=== PATIENT | male | born 1950 | race American Indian/Alaskan Native ===

== ENCOUNTER 2019-07-15 17:05 | Emergency (ER) | payer MEDICARE ==
[2019-07-15] MEDS ORDERED: CALCIUM CHLORIDE IV ONE (17:15)
[2019-07-15] MEDS ORDERED: ADRENALIN ONE (17:15)
--- NOTE | 2019-07-15 18:00 | Emergency Department Report ---
ED CPR HPI - General Chief Complaint: Cardiac Arrest/CPR Stated Complaint: CARDIAC ARREST Time Seen by Provider: 07/15/19 17:43 Source: EMS Mode of arrival: Stretcher Limitations: No Limitations - History of Present Illness Initial Comments: 69-year-old male with a history of pancreatic cancer, pulmonary embolism on anticoagulation, DVT, RB B, type 2 diabetes, and hypertension presents to the hospital in cardiopulmonary arrest [facility]. History provided by EMS reported that staff called initially for respiratory distress. Patient took his last breath at approximately 4:30 PM and bystander CPR was initiated by prison staff. Upon EMS arrival patient was in asystole. Patient received 2 doses of epi, one defibrillation for an episode of V. fib, but then deteriorated back to P EA. Patient was intubated orally with a 7.5 ET tube, right EJ and right IO were placed prior to arrival. Pt is a full code ED Review of Systems ROS: Stated complaint: CARDIAC ARREST Other details as noted in HPI Comment: Unobtainable due to pts medical conditions ED Past Medical Hx - Social History Smoking Status: Unknown if ever smoked ED Physical Exam - General Limitations: No Limitations - Other Other exam information: General: Unresponsive Head: Atraumatic Eyes: Icteric sclerae with unreactive pupils ENT: Orally intubated 7.5 ET tube Neck: Trachea midline without subcutaneous emphysema Chest: Intermittent agonal respirations. Equal breath sounds bilaterally with bagging. No breath sounds over the epigastrium. Chest rise with positive ventilation CV: Pulseless Abdomen: soft, nondistended Back: Nontender Extremity: Normal inspection, right IO Neuro: GCS equals 3 Skin: Icteric skin ED Medical Decision Making - Medical Decision Making Patient resuscitation contained upon arrival. Patient received several doses of epinephrine, sodium bicarbonate, calcium chloride, and IV fluids. Patient's rhythm changed between PEA and V. tach, and with brief return of spontaneous circulation before deteriorating back to PEA. See code sheet for rhythm changes and meds administered. Despite resuscitation attempts patient remained in PEA arrest with poor prognosis due to prolonged cardiopulmonary arrest time and unreactive pupils. Further resuscitation efforts discontinued with time of of 5:25 PM. Patient's sister and other family member in ED informed of patient's . - Differential Diagnosis DC, CVA, pulmonary embolism, Critical Care Time: Yes Critical care time in (mins) excluding proc time.: 40 Critical care attestation.: If time is entered above; I have spent that time in minutes in the direct care of this critically ill patient, excluding procedure time. ED Disposition Clinical Impression: Cardiopulmonary arrest Disposition: DC-20 Is pt being admited?: No Does the pt Need Aspirin: No Condition: Critical Time of Disposition: 18:00
== END 2019-07-15 21:45 ==
LOC: ED 17:05
DX: I46.9 Cardiac arrest, cause unspecified (principal)
CPT/HCPCS: 82962; 99285; J0171; 99291